=== PATIENT | male | born 1955 | race African-American/Black ===

== ENCOUNTER 2024-01-03 09:31 | Outpatient (CLI) | payer MEDICARE, SELFPAY ==
--- NOTE | 2024-01-03 11:00 | NEURO_ITS ---
Impression: # Known diabetic complains of pain in lower extremities. History of bilateral total knee replacements. # Asymmetrical motor/sensory neuropathy. # Needle/EMG exam neurogenic. # Posterior tibial responses are polyphasic proximally. # Additionally noted patient has flat feet. Nerve Conduction Studies Anti Sensory Summary Table Stim Site NR Peak (ms) P-T Amp (?V) Site1 Site2 Delta-P (ms) Dist (cm) [place] (m/s) Left Sup Fibular Anti Sensory (Ant Lat Mall) 14 cm 3.1 4.8 14 cm Ant Lat Mall 3.1 16.0 52 Right Sup Fibular Anti Sensory (Ant Lat Mall) NO RESPONSE 14 cm NR 14 cm Ant Lat Mall 16.0 Left Sural Anti Sensory (Lat Mall) NO RESPONSE Calf NR Calf Lat Mall 16.0 Right Sural Anti Sensory (Lat Mall) NO RESPONSE Calf NR Calf Lat Mall 16.0 Motor Summary Table Stim Site NR Onset (ms) O-P Amp (mV) Site1 Site2 Delta-0 (ms) Dist (cm) [place] (m/s) Left Peroneal Motor (Vastus Med) Ankle 3.6 5.6 Popit Ankle 9.2 44.0 48 Popit 12.8 3.2 Right Peroneal Motor (Vastus Med) Ankle 4.2 3.6 Popit Ankle 9.1 44.0 48 Popit 13.3 4.3 Left Tibial Motor (Abd [place] Brev) Ankle 4.6 0.9 Knee Ankle 9.2 45.0 49 Knee 13.8 0.2 Right Tibial Motor (Abd [place] Brev) Ankle 4.3 1.2 Knee Ankle 10.8 46.0 43 Knee 15.1 0.4 F Wave Studies NR F-Lat (ms) L-R F-Lat (ms) Left Peroneal (Mrkrs) (EDB) 53.63 1.29 Right Peroneal (Mrkrs) (EDB) 52.34 1.29 Left Tibial (Mrkrs) (Abd Hallucis) 53.80 1.34 Right Tibial (Mrkrs) (Abd Hallucis) 52.46 1.34 EMG Side Muscle Nerve Root Ins Act Fibs Amp Dur Recrt Comment Right AntTibialis Dp Br Fibular L4-5 Nml Nml Nml Nml Nml Right Gastroc Tibial S1-2 Nml Nml Nml Nml Nml Right Fibularis Long Sup Br Fibular L5-S1 Nml Nml Nml Nml +1 Right Flex Dig Long Tibial L5-S2 Nml Nml Nml >12ms +1 Right Ext Dig Brev Dp Br Fibular L5, S1 Nml Nml Nml >12ms +1 Left AntTibialis Dp Br Fibular L4-5 Nml Nml Nml Nml Nml Left Gastroc Tibial S1-2 Nml Nml Nml Nml Nml Left Fibularis Long Sup Br Fibular L5-S1 Nml Nml Nml Nml +1 Left Flex Dig Long Tibial L5-S2 Nml Nml Nml >12ms +1 Left Ext Dig Brev Dp Br Fibular L5, S1 Nml Nml Nml >12ms +1 MTDD
== END 2024-01-03 09:32 | disposition home or self-care (01) ==
LOC: ANHNEURO 09:34
PROVIDERS: PCP Internal Medicine Infectious Disease; Visit Provider Podiatrist Foot & Ankle Surgery
DX: E11.40 Type 2 diabetes mellitus with diabetic neuropathy, unspecified (principal); R94.131 Abnormal electromyogram [EMG]
CPT/HCPCS: 95886; 95910

== ENCOUNTER 2024-03-12 12:48 | Outpatient (CLI) | payer MEDICARE, SELFPAY ==
--- NOTE | ~2024-03-12 | PE_ITS ---
EXAMINATION: PET_PETPSMAST_PT DATE: 03/12/2024 14:45 INDICATION: Prostate cancer TECHNIQUE: 4.929 mCi of Locametz Ga-68([id number]) was administered i.v. Low dose computed franklin ography (CT) images were acquired from the base of the brain to the base of the brain to the proximal thighs for attenuation correction and anatomic localization. Positron emission tomography (PET) imag es were acquired in the same distribution beginning 85 minutes after injection. Images including fuse d PET/CT images were reconstructed in axial, coronal, and sagittal planes. Automated exposure control technique was employed. The dose-length product was 1002.33mGy-cm. COMPARISON: None FINDINGS: Head/neck: Typical pattern of symmetric physiologic increased activity in the lacrimal, parotid and submandibula r glands as well as along the mucosa of the nasal and oral cavities, pharynx and hypopharynx. No path ologically enlarged cervical lymphadenopathy or suspicious foci of increased uptake in the visualized head or neck. Chest: No suspicious pulmonary nodules, pulmonary infiltrates or pleural effusion. Heart size is normal. No pericardial effusion. Thoracic aorta is normal in caliber. No pathologically enlarged or PSMA avid th oracic lymphadenopathy. Abdomen/pelvis/proximal thighs: Physiologic renal accumulation and excretion of activity in the kidneys, bladder and along portions o f ureters. Marked prostatomegaly which impresses upon the base of the bladder which measures 6.3 x 6. 0 x 7.8 cm. There is heterogeneous activity in the prostate with a few foci of more intense uptake in the most intense at the right peripheral zone with maximal SUV of 4.2 and a second anteriorly slight ly to the left of midline with maximal SUV of 3.8 and a final within the nodular extension of the pro state bulging into the bladder with maximal SUV of 3.5. Normal degree and slightly heterogenous patte rn of increased uptake throughout the liver and spleen without radiologic correlate or dominant PSMA avid lesion. The gallbladder, pancreas and bilateral adrenal glands are normal. Moderate uptake scatt ered throughout the bowels with typical duodenal and proximal jejunal predominance and without radiol ogic correlate, also likely physiologic. No other abnormal foci of increased uptake or pathologically enlarged lymphadenopathy in the abdomen, pelvis or proximal thighs. Musculoskeletal: Severe cervical, moderate thoracic and moderate to severe lumbar spondylosis. No suspicious lytic, bl astic or abnormally PSMA avid bone lesions. IMPRESSION: 1. Marked enlargement of the prostate with 3 foci of more focally increased uptake consistent with pr imary prostate cancer. No evident metastatic disease. Reviewed, dictated and finalized at location A. IMPRESSION: 1. Marked enlargement of the prostate with 3 foci of more focally increased upt alma consistent with primary prostate cancer. No evident metastatic disease.
== END 2024-03-12 12:49 | disposition home or self-care (01) ==
PROVIDERS: Visit Provider Urology
DX: C61 Malignant neoplasm of prostate (principal)
CPT/HCPCS: 78815; A9596